=== PATIENT | male | born 1945 | race Caucasian/White ===

== ENCOUNTER 2022-11-29 08:57 | Inpatient (IN) ==
[2022-11-29 10:31] LABS: Calcium 9.4 mg/dL (8.6-10.3); Creatinine, Serum 1.18 mg/dL (0.67-1.17); Magnesium 1.8 mg/dL (1.9-2.7); Potassium 3.8 mmol/L (3.5-5.0)
[2022-11-29] MEDS ORDERED: Potassium Chlor 20 meq TAB.ER PO ONE (10:42)
[2022-11-29] MEDS ORDERED: Magnesium Sulfate 2 gm BAG 2 GM/50 ML BAG IVPB ONE (11:15)
[2022-11-30 05:56] LABS: Calcium 8.6 mg/dL (8.6-10.3); Creatinine, Serum 1.06 mg/dL (0.67-1.17); Potassium 4.1 mmol/L (3.5-5.0); eGFR CKD-EPI 72.7 (>60)
[2022-11-30] MEDS: Venlafaxine XR 75 mg PO SCH (08:20)
[2022-12-01 07:10] LABS: Calcium 8.3 mg/dL (8.6-10.3); Creatinine, Serum 1.08 mg/dL (0.67-1.17); Potassium 4.3 mmol/L (3.5-5.0); eGFR CKD-EPI 71.1 (>60)
[2022-12-01] MEDS: Venlafaxine XR 75 mg PO SCH (08:46)
[2022-12-01] MEDS ORDERED: fentaNYL 100 mcg/2 ml 50 MCG/ML VIAL ONE (14:51)
[2022-12-01] MEDS ORDERED: Midazolam 5 mg/5 ml VIAL 1 mg/ml 5 ml VIAL (5 mg) ONE (14:51)
[2022-12-01] MEDS ORDERED: Flumazenil 0.5 mg/5 ml 0.1 MG/ML 5 ml VIAL ONE (14:51)
[2022-12-01] MEDS ORDERED: Naloxone 0.4 mg VIAL 0.4 mg/ml 1 ml VIAL ONE (14:51)
[2022-12-01] MEDS ORDERED: fentaNYL 100 mcg/2 ml 50 MCG/ML VIAL IV SLOW PU ONE (16:17)
[2022-12-01] MEDS ORDERED: Midazolam 10 mg/10 ml VIAL 1 mg/ml 10 ml VIAL (10 mg) IV SLOW PU ONE (16:17)
[2022-12-01] MEDS ORDERED: Flumazenil 0.5 mg/5 ml 0.1 MG/ML 5 ml VIAL IV PRN (16:17)
[2022-12-01] MEDS ORDERED: Naloxone 0.4 mg VIAL 0.4 mg/ml 1 ml VIAL IV PUSH PRN (16:17)
[2022-12-02] MEDS: Venlafaxine XR 75 mg PO SCH (08:01)
[2022-12-02] MEDS ORDERED: Naloxone 0.4 mg VIAL 0.4 mg/ml 1 ml VIAL ONE (12:30)
[2022-12-02] MEDS ORDERED: Flumazenil 0.5 mg/5 ml 0.1 MG/ML 5 ml VIAL ONE (12:30)
[2022-12-02] MEDS ORDERED: Midazolam 5 mg/5 ml VIAL 1 mg/ml 5 ml VIAL (5 mg) ONE (12:30)
[2022-12-02] MEDS ORDERED: fentaNYL 100 mcg/2 ml 50 MCG/ML VIAL ONE (12:30)
[2022-12-02 15:07] VITALS: BP 150/93
== END 2022-12-02 14:56 | disposition home or self-care (01) | DRG 310 ==
LOC: MEDTELE 08:57
PROVIDERS: ADMIT Specialist; ATTEND Internal Medicine
PROC: CARDVER (ICD-10-PCS; 2022-12-01 14:50)

== ENCOUNTER 2022-12-10 13:30 | Inpatient (IN) ==
[2022-12-10 14:12] LABS: Hematocrit 40.8 % (38-53); Hemoglobin 13.7 g/dL (13.2-16.3); Mean Corpuscular Hemoglobin 30.9 pg (27-33); Mean Corpuscular Hgb Conc 33.6 g/dL (31-36); Mean Corpuscular Volume 91.9 fL (80-97); Mean Platelet Volume 8.2 fL (7.5-11.2); Platelet Count 260 10^3/uL (150-450); Red Blood Count 4.44 10^6/uL (4.06-5.63); Red Cell Distribution Width 15.2 % (12-17); White Blood Count 32.6 10^3/uL (3.6-10.2)
[2022-12-10 14:26] LABS: INR 2.01 (0.88-1.18)
[2022-12-10 14:28] LABS: Albumin 4.2 g/dL (3.2-5.2); Calcium 10.4 mg/dL (8.6-10.3); Creatinine, Serum 2.2 mg/dL (0.67-1.17); Globulin 4.2 g/dL (2-4); Potassium 3.4 mmol/L (3.5-5.0); Total Bilirubin 1.4 mg/dL (0.2-1.0); Total Protein 8.4 g/dL (6.4-8.9); eGFR CKD-EPI 30.3 (>60)
[2022-12-10 14:32] LABS: ABS Lymphocytes 1.4 10^3/uL (1.0-4.8); ABS Monocytes 1.4 10^3/uL (0.0-1.1); ABS Neutrophils 29.8 10^3/uL (1.5-7.6); ABS Nucleated RBC 0.01 10^3/ul; Lymphocyte % 4.2 %
[2022-12-10] MEDS ORDERED: Lactated Ringers 1000 ml BAG 1,000 ML IV ONE ×2 (14:32)
[2022-12-10] MEDS ORDERED: Piperacillin/Tazobac 3.375 BAG 3.375 GM/100 ML BAG IV ONE (15:10)
[2022-12-10 15:41] LABS: High Sensitivity Troponin 1 Hr 14 pg/mL (<20)
[2022-12-10] MEDS ORDERED: Metoprolol Tartrate 5 mg VIAL 5 ml VIAL (1 mg/ml) IV PRN (16:42)
[2022-12-10] MEDS ORDERED: Zosyn per Pharmacy NOTE FOLLOW UP SCH (17:00)
[2022-12-10] MEDS ORDERED: fentaNYL 100 mcg/2 ml 50 MCG/ML VIAL ONE (18:14)
[2022-12-10] MEDS ORDERED: ceFAZolin 1 GM ADVAN 1 GM ADDV.VIAL IVPB ONE (18:14)
[2022-12-10] MEDS ORDERED: Albuterol HFA INHALER 8 gm MDI INH PRN (18:39)
[2022-12-10] MEDS ORDERED: Potassium Chloride LIQUID 20 MEQ/15 ML LIQUID PO ONE (19:18)
[2022-12-10] MEDS ORDERED: ZOSYN 3.375 GM Q8H per EXTENDED INFUSION IV SCH (20:00)
[2022-12-10] MEDS: CMCS: Venlafaxine 25 mg TAB (NF) PO SCH (20:52)
[2022-12-10] MEDS ORDERED: Acetaminophen IV 1 GM/100ML 1,000 MG/100 ML BAG IV PRN (21:09)
[2022-12-10] MEDS: ZOSYN 3.375 GM Q8H per EXTENDED INFUSION IV SCH (21:12)
[2022-12-10] MEDS ORDERED: Morphine 2 MG/ML SYRINGE IV ONE (21:15)
[2022-12-11] MEDS ORDERED: Metoclopramide 5 MG/ML VIAL (10 mg) IV PRN (02:15)
[2022-12-11] MEDS: NS 0.9% 1000 ml BAG 1,000 ML IV SCH ×2 (02:29→15:10)
[2022-12-11] MEDS: ZOSYN 3.375 GM Q8H per EXTENDED INFUSION IV SCH ×3 (04:49→21:03)
[2022-12-11 07:53] LABS: Hematocrit 35.1 % (38-53); Hemoglobin 11.9 g/dL (13.2-16.3); Mean Corpuscular Hgb Conc 33.7 g/dL (31-36); Mean Corpuscular Volume 91.7 fL (80-97); Mean Platelet Volume 8.5 fL (7.5-11.2); Platelet Count 221 10^3/uL (150-450); Red Blood Count 3.83 10^6/uL (4.06-5.63); Red Cell Distribution Width 15.4 % (12-17); White Blood Count 32.1 10^3/uL (3.6-10.2)
[2022-12-11 07:58] LABS: INR 1.54 (0.88-1.18)
[2022-12-11 08:03] LABS: ABS Lymphocytes 1.4 10^3/uL (1.0-4.8); ABS Monocytes 1.7 10^3/uL (0.0-1.1); ABS Neutrophils 28.9 10^3/uL (1.5-7.6); Lymphocyte % 4.4 %
[2022-12-11 08:14] LABS: Calcium 9.1 mg/dL (8.6-10.3); Magnesium 2.1 mg/dL (1.9-2.7); Phosphorus 4.3 mg/dL (2.5-5.0); Potassium 3.7 mmol/L (3.5-5.0)
[2022-12-11] MEDS: CMCS: Venlafaxine 25 mg TAB (NF) PO SCH ×3 (09:25→20:59)
[2022-12-11 16:03] LABS: Hematocrit 33.4 % (38-53); Hemoglobin 11.2 g/dL (13.2-16.3)
[2022-12-12] MEDS: NS 0.9% 1000 ml BAG 1,000 ML IV SCH (05:30)
[2022-12-12] MEDS: ZOSYN 3.375 GM Q8H per EXTENDED INFUSION IV SCH ×3 (05:32→20:32)
[2022-12-12 06:54] LABS: ABS Eosinophils 0.1 10^3/uL (0.0-0.5); ABS Lymphocytes 1.6 10^3/uL (1.0-4.8); ABS Monocytes 0.9 10^3/uL (0.0-1.1); ABS Neutrophils 11.2 10^3/uL (1.5-7.6); ABS Nucleated RBC 0.01 10^3/ul; Eosinophil % 0.8 %; Hematocrit 34.5 % (38-53); Hemoglobin 11.6 g/dL (13.2-16.3); Lymphocyte % 11.8 %; Mean Corpuscular Hgb Conc 33.8 g/dL (31-36); Mean Corpuscular Volume 91.9 fL (80-97); Mean Platelet Volume 8.4 fL (7.5-11.2); Nucleated Red Blood Cells % 0.1 /100 WBC (0.0-0.4); Platelet Count 240 10^3/uL (150-450); Red Blood Count 3.75 10^6/uL (4.06-5.63); Red Cell Distribution Width 15.3 % (12-17); White Blood Count 13.8 10^3/uL (3.6-10.2)
[2022-12-12 07:06] LABS: Calcium 8.9 mg/dL (8.6-10.3); Creatinine, Serum 1.4 mg/dL (0.67-1.17); Potassium 3.5 mmol/L (3.5-5.0); eGFR CKD-EPI 52.1 (>60)
[2022-12-12] MEDS: CMCS: Venlafaxine 25 mg TAB (NF) PO SCH ×3 (09:10→20:27)
[2022-12-13] MEDS: ZOSYN 3.375 GM Q8H per EXTENDED INFUSION IV SCH ×3 (04:29→23:12)
[2022-12-13 07:04] LABS: ABS Basophils 0.1 10^3/uL (0.0-0.1); ABS Eosinophils 0.1 10^3/uL (0.0-0.5); ABS Lymphocytes 1.6 10^3/uL (1.0-4.8); ABS Monocytes 0.9 10^3/uL (0.0-1.1); ABS Neutrophils 7.8 10^3/uL (1.5-7.6); Eosinophil % 1.1 %; Hematocrit 30.7 % (38-53); Hemoglobin 10.6 g/dL (13.2-16.3); Lymphocyte % 15.1 %; Mean Corpuscular Hemoglobin 31.5 pg (27-33); Mean Corpuscular Hgb Conc 34.5 g/dL (31-36); Mean Corpuscular Volume 91.5 fL (80-97); Mean Platelet Volume 8.2 fL (7.5-11.2); Platelet Count 209 10^3/uL (150-450); Red Blood Count 3.35 10^6/uL (4.06-5.63); Red Cell Distribution Width 14.9 % (12-17); White Blood Count 10.6 10^3/uL (3.6-10.2)
[2022-12-13 07:21] LABS: Calcium 8.5 mg/dL (8.6-10.3); Creatinine, Serum 1.13 mg/dL (0.67-1.17); Potassium 3.5 mmol/L (3.5-5.0); eGFR CKD-EPI 67.4 (>60)
[2022-12-13] MEDS: CMCS: Venlafaxine 25 mg TAB (NF) PO SCH ×3 (10:35→23:11)
[2022-12-13] MEDS ORDERED: Iohexol 350 (CONTRAST) 500 ML MDV IV ONE (13:44)
[2022-12-14] MEDS: ZOSYN 3.375 GM Q8H per EXTENDED INFUSION IV SCH ×4 (06:09→21:20)
[2022-12-14 06:45] LABS: Calcium 8.5 mg/dL (8.6-10.3); Creatinine, Serum 0.99 mg/dL (0.67-1.17); Magnesium 1.8 mg/dL (1.9-2.7); Phosphorus 3.7 mg/dL (2.5-5.0); Potassium 3.8 mmol/L (3.5-5.0); eGFR CKD-EPI 78.9 (>60)
[2022-12-14 07:02] LABS: ABS Basophils 0.2 10^3/uL (0.0-0.1); ABS Eosinophils 0.3 10^3/uL (0.0-0.5); ABS Lymphocytes 2.5 10^3/uL (1.0-4.8); ABS Monocytes 1.3 10^3/uL (0.0-1.1); ABS Neutrophils 10.8 10^3/uL (1.5-7.6); ABS Nucleated RBC 0.02 10^3/ul; Eosinophil % 1.9 %; Hematocrit 29.7 % (38-53); Hemoglobin 10.1 g/dL (13.2-16.3); Lymphocyte % 16.7 %; Mean Corpuscular Hgb Conc 34.1 g/dL (31-36); Mean Corpuscular Volume 91.1 fL (80-97); Mean Platelet Volume 8.9 fL (7.5-11.2); Nucleated Red Blood Cells % 0.1 /100 WBC (0.0-0.4); Platelet Count 238 10^3/uL (150-450); Red Blood Count 3.26 10^6/uL (4.06-5.63); Red Cell Distribution Width 14.6 % (12-17); White Blood Count 15.1 10^3/uL (3.6-10.2)
[2022-12-14] MEDS: NS 0.9% 1000 ml BAG 1,000 ML IV SCH ×2 (07:31)
[2022-12-14] MEDS: CMCS: Venlafaxine 25 mg TAB (NF) PO SCH ×3 (09:04→21:32)
[2022-12-14 11:33] LABS: Ferritin 80.2 ng/mL (24-336)
[2022-12-14 14:36] LABS: Hematocrit 34.1 % (38-53); Hemoglobin 11.5 g/dL (13.2-16.3); Mean Corpuscular Hgb Conc 33.8 g/dL (31-36); Mean Corpuscular Volume 91.9 fL (80-97); Mean Platelet Volume 7.9 fL (7.5-11.2); Platelet Count 240 10^3/uL (150-450); Red Blood Count 3.71 10^6/uL (4.06-5.63); Red Cell Distribution Width 14.8 % (12-17); White Blood Count 11.5 10^3/uL (3.6-10.2)
[2022-12-14] MEDS ORDERED: Iron Sucrose 200 MG in NS 0.9% 100 ml BAG 100 ML IVPB ONE (15:34)
[2022-12-15] MEDS: ZOSYN 3.375 GM Q8H per EXTENDED INFUSION IV SCH ×2 (05:46→13:07)
[2022-12-15 05:50] LABS: ABS Eosinophils 0.1 10^3/uL (0.0-0.5); ABS Lymphocytes 1.4 10^3/uL (1.0-4.8); ABS Monocytes 1.1 10^3/uL (0.0-1.1); ABS Neutrophils 9.2 10^3/uL (1.5-7.6); Eosinophil % 1.1 %; Hematocrit 28.7 % (38-53); Hemoglobin 9.9 g/dL (13.2-16.3); Mean Corpuscular Hemoglobin 31.8 pg (27-33); Mean Corpuscular Hgb Conc 34.5 g/dL (31-36); Mean Corpuscular Volume 92.3 fL (80-97); Mean Platelet Volume 8.1 fL (7.5-11.2); Platelet Count 206 10^3/uL (150-450); Red Blood Count 3.11 10^6/uL (4.06-5.63); Red Cell Distribution Width 14.7 % (12-17); White Blood Count 11.9 10^3/uL (3.6-10.2)
[2022-12-15 06:09] LABS: Calcium 8.2 mg/dL (8.6-10.3); Creatinine, Serum 1.02 mg/dL (0.67-1.17); Magnesium 1.8 mg/dL (1.9-2.7); Phosphorus 3.1 mg/dL (2.5-5.0); Potassium 3.9 mmol/L (3.5-5.0); eGFR CKD-EPI 76.2 (>60)
[2022-12-15] MEDS: CMCS: Venlafaxine 25 mg TAB (NF) PO SCH ×2 (09:41→15:21)
[2022-12-15] MEDS ORDERED: Iron Sucrose 200 MG in NS 0.9% 100 ml BAG 100 ML IVPB ONE (14:00)
[2022-12-15 15:10] LABS: Hemoglobin 11.2 g/dL (13.2-16.3); Mean Corpuscular Hemoglobin 31.3 pg (27-33); Mean Corpuscular Hgb Conc 33.8 g/dL (31-36); Mean Corpuscular Volume 92.7 fL (80-97); Mean Platelet Volume 7.8 fL (7.5-11.2); Platelet Count 243 10^3/uL (150-450); Red Blood Count 3.56 10^6/uL (4.06-5.63); Red Cell Distribution Width 14.7 % (12-17); White Blood Count 9.9 10^3/uL (3.6-10.2)
[2022-12-15 15:53] VITALS: BP 129/86
== END 2022-12-15 17:58 | disposition home or self-care (01) | DRG 418 ==
LOC: ED 13:30 → EDHOLD 13:30 → SUATTDRO 15:41 → MEDTELE 19:55
PROVIDERS: ADMIT Internal Medicine; ATTEND Internal Medicine

== ENCOUNTER 2023-04-11 12:27 | Observation (INO) ==
[2023-04-11 13:25] LABS: ABS Eosinophils 0.1 10^3/uL (0.0-0.5); ABS Lymphocytes 2.3 10^3/uL (1.0-4.8); ABS Monocytes 0.8 10^3/uL (0.0-1.1); ABS Neutrophils 4.9 10^3/uL (1.5-7.6); ABS Nucleated RBC 0.01 10^3/ul; Eosinophil % 0.9 %; Hematocrit 40.3 % (38-53); Hemoglobin 13.8 g/dL (13.2-16.3); Lymphocyte % 28.1 %; Mean Corpuscular Hemoglobin 31.4 pg (27-33); Mean Corpuscular Hgb Conc 34.3 g/dL (31-36); Mean Corpuscular Volume 91.6 fL (80-97); Mean Platelet Volume 8.4 fL (7.5-11.2); Nucleated Red Blood Cells % 0.1 %/100WBC (0.0-0.8); Platelet Count 227 10^3/uL (150-450); Red Cell Distribution Width 13.6 % (12-17); White Blood Count 8.2 10^3/uL (3.6-10.2)
[2023-04-11 13:45] LABS: Albumin 4.2 g/dL (3.2-5.2); Albumin/Globulin Ratio 1.3 (1-3); Calcium 9.8 mg/dL (8.6-10.3); Creatinine, Serum 0.99 mg/dL (0.67-1.17); Globulin 3.2 g/dL (2-4); Potassium 4.8 mmol/L (3.5-5.0); Total Bilirubin 0.7 mg/dL (0.2-1.0); Total Protein 7.4 g/dL (6.4-8.9); eGFR CKD-EPI 78.5 (>60)
[2023-04-11 13:57] LABS: INR 1.18 (0.83-1.13)
[2023-04-11 14:58] LABS: High Sensitivity Troponin 1 Hr 12 pg/mL (<20)
[2023-04-11] MEDS ORDERED: hydrALAZINE 20 mg/ml 1 ML Vial IV IV SLOW PU ONE (15:08)
[2023-04-11] MEDS ORDERED: Metoclopramide 5 MG/ML VIAL (10 mg) IV SLOW PU ONE (16:41)
[2023-04-11] MEDS ORDERED: Magnesium Sulfate IV 1GM/100ML 1 GM/100 ML BAG IV ONE (16:41)
[2023-04-13 07:28] LABS: Albumin 3.8 g/dL (3.2-5.2); Albumin/Globulin Ratio 1.3 (1-3); Calcium 9.3 mg/dL (8.6-10.3); Creatinine, Serum 0.91 mg/dL (0.67-1.17); Globulin 2.9 g/dL (2-4); Magnesium 1.9 mg/dL (1.9-2.7); Total Bilirubin 0.7 mg/dL (0.2-1.0); Total Protein 6.7 g/dL (6.4-8.9); eGFR CKD-EPI 86.8 (>60)
[2023-04-13] MEDS: CMCS:Venlafaxine 25 mg TAB (NF) PO SCH (14:27)
[2023-04-14 06:28] LABS: Hematocrit 36.7 % (38-53); Hemoglobin 12.5 g/dL (13.2-16.3); Mean Corpuscular Hemoglobin 30.9 pg (27-33); Mean Corpuscular Hgb Conc 34.1 g/dL (31-36); Mean Corpuscular Volume 90.6 fL (80-97); Mean Platelet Volume 8.3 fL (7.5-11.2); Platelet Count 193 10^3/uL (150-450); Red Blood Count 4.05 10^6/uL (4.06-5.63); Red Cell Distribution Width 13.6 % (12-17); White Blood Count 8.1 10^3/uL (3.6-10.2)
[2023-04-14 06:40] LABS: Calcium 9.1 mg/dL (8.6-10.3); Creatinine, Serum 0.99 mg/dL (0.67-1.17); eGFR CKD-EPI 78.5 (>60)
[2023-04-14] MEDS ORDERED: Venlafaxine 75 mg CAP (NF) PO SCH (09:00)
[2023-04-14] MEDS: CMCS:Venlafaxine 25 mg TAB (NF) PO SCH (10:23)
[2023-04-14] MEDS ORDERED: SUMAtriptan Subcut 6 MG/0.5 ML VIAL SUBCUT ONE (13:03)
[2023-04-14 14:52] VITALS: BP 154/74
[2023-04-14 17:22] LABS: Folate 14.87 ng/mL (5.90-24.80)
== END 2023-04-14 17:45 | disposition home or self-care (01) ==
LOC: EDHOLD 12:27 → ED 12:27 → SUATTDRO 18:47 → MED 04-12 04:18
PROVIDERS: ADMIT Internal Medicine; ATTEND Internal Medicine